=== PATIENT | female | born 1940 | race Caucasian/White ===

== ENCOUNTER 2022-03-20 13:59 | Outpatient (CLI) | payer MEDICARE, BC, SELFPAY ==
[2022-03-20 16:09] LABS: Chloride* 101 mmol/L (96-114); Potassium* 4.5 mmol/L (3.6-5.1); Sodium* 140 mmol/L (135-149)
[2022-03-20 16:12] LABS: Blood Urea Nitrogen* 31 mg/dL (7-30); Carbon Dioxide* 32 mmol/L (20-32); Creatinine* 0.9 mg/dL (0.5-1.5); Estimated Glomerular Filt Rate 63 ml/min; Glucose* 114 mg/dL (60-115)
[2022-03-20 16:13] LABS: Calcium* 9.1 mg/dL (8.4-10.6)
== END 2022-03-20 14:00 | disposition home or self-care (01) ==
LOC: NFLDREF 14:01
PROVIDERS: PCP Family Medicine; Visit Provider Family Medicine
DX: Z01.818 Encounter for other preprocedural examination (principal)
CPT/HCPCS: 80048

== ENCOUNTER 2022-03-22 07:29 | Day surgery (SDC) | payer MEDICARE, BC, SELFPAY ==
[2022-03-22 07:41] VITALS: BMI 22.1
[2022-03-22] MEDS: TETRACAINE 0.5% OPHTH 1 DROP EYE-LEFT ×2 (07:43→07:47)
[2022-03-22] MEDS: KETOROLAC OPHTH 0.5% 1 DROP EYE-LEFT ×2 (07:46→07:50)
[2022-03-22] MEDS: SODIUM CHLORIDE 0.9 % (FLUSH) 10 ML SYRINGE IVF (07:50)
[2022-03-22 07:53] VITALS: BP 134/56; PULSE 58; RESP 16; TEMP 36.6; O2SAT 98
[2022-03-22] MEDS: TETRACAINE 0.5% OPHTH 2 DROP EYE-LEFT (08:36)
[2022-03-22] MEDS: BALANCED SALT IRRIG SOLN 15 ML EYE-LEFT (08:40)
--- NOTE | 2022-03-22 08:55 | W.ANESCHARGE ---
Anesthesia Charges Start Date/Time Anesthesia Start Date: 03/22/22 Anesthesia Start Time: 08:32 Stop Date/Time Anesthesia Stop Date: 03/22/22 Anesthesia Stop Time: 09:05 Summary Emergency: No Extremes of Age: Over 68-CPT 79020
[2022-03-22 09:05] VITALS: BP 105/57; PULSE 52; RESP 16; TEMP 36.8; O2SAT 99
--- NOTE | 2022-03-22 10:31 | P.PCN_ITS ---
Procedure Note Date Seen: 03/22/22 Will [facility] bill your pro fee for this procedure?: Yes Procedure Description: SURGEON: Jesi Calzada MD PREOPERATIVE DIAGNOSIS: Nuclear sclerotic cataract, left eye. POSTOPERATIVE DIAGNOSIS: Nuclear sclerotic cataract, left eye. NAME OF OPERATION: Phacoemulsification of cataract with posterior chamber intraocular lens implantation in the left eye. ANESTHESIA: Topical. ESTIMATED BLOOD LOSS: Less than 2 cc. COMPLICATIONS: None. PATHOLOGY SPECIMEN: None. INDICATIONS: See consult note for details. The risks, benefits and alternatives of the procedure were explained to the patient, who elected to proceed and signed informed consent to do so. PROCEDURE: The patient was brought to the pre-holding area where the left eye was identified as the operative eye. I placed my initials above this eye. The patient received eye drops consisting of 0.5% tetracaine, 1% tropicamide, 10% phenylephrine, and 0.5% ketorolac. The patient was then brought to the operating room where the left eye was again identified as the operative eye. The eye was prepped with Betadine and draped in the usual sterile ophthalmic fashion. A #15 super-sharp blade was used to create a paracentesis site. 1% non-preserved intracameral lidocaine was injected into the anterior chamber. Endocoat was injected into the anterior chamber. A 2.4 mm keratome was used to create a three-plane self-sealing incision 1 mm anterior to the temporal limbus. A cystotome was used to create an anterior capsular leaflet. The Utrata forceps were used to extend this to form a continuous curvilinear capsulorrhexis. Hydrodissection was performed. The cataract was removed with phacoemulsification using the [id number] technique. The irrigation and aspiration tip was used to remove the remaining cortex. Healon was injected into the capsular bag. An JO ZCB00 intraocular lens of 11.5 diopters was injected into the capsular bag. The irrigation and aspiration tip was used to remove the remaining viscoelastic. Balanced salt solution on a cannula was used to hydrate the wound, and the wound was found to be watertight. The pupil was noted to be round. DISPOSITION: The patient was taken to the recovery room and discharged to home in stable condition. The patient was instructed to call me or go to the emergency department with any sudden change, including dramatic loss of vision, severe pain in the eye or eyebrow region, nausea, or vomiting. The patient will follow up in the clinic tomorrow morning. Surgeon: Jesi Calzada MD
== END 2022-03-22 09:40 | disposition home or self-care (01) ==
PROVIDERS: PCP Family Medicine; Visit Provider Ophthalmology
PROC: (CPT 66984; principal; 2022-03-22 07:30)
DX: H25.12 Age-related nuclear cataract, left eye (principal)
CPT/HCPCS: 66984; 00142; 99100; A9270; J2250; J3010; V2632

== ENCOUNTER 2022-04-05 07:29 | Day surgery (SDC) | payer MEDICARE, BC, SELFPAY ==
[2022-04-05 07:49] VITALS: BP 139/63; PULSE 57; RESP 16; TEMP 36.7; O2SAT 98
[2022-04-05] MEDS: TETRACAINE 0.5% OPHTH 1 DROP EYE-RIGHT ×2 (07:51→07:54)
[2022-04-05] MEDS: KETOROLAC OPHTH 0.5% 1 DROP EYE-RIGHT ×2 (07:51→07:54)
[2022-04-05] MEDS: SODIUM CHLORIDE 0.9 % (FLUSH) 10 ML SYRINGE IVF (07:52)
--- NOTE | 2022-04-05 07:55 | SUR.PREOP ---
The eye drops brought by the patient (Ketorolac and Prednisolone) are examined and I have determined they are labeled by the patient's pharmacy for this patient as prescribed by the surgeon. The bottles are intact, recently obtained and appear to be correct.
[2022-04-05] MEDS: TETRACAINE 0.5% OPHTH 2 DROP EYE-RIGHT (08:03)
[2022-04-05] MEDS: BALANCED SALT IRRIG SOLN 15 ML EYE-RIGHT (08:03)
[2022-04-05 08:07] VITALS: BMI 22.1
--- NOTE | 2022-04-05 09:01 | W.ANESCHARGE ---
Anesthesia Charges Start Date/Time Anesthesia Start Date: 04/05/22 Anesthesia Start Time: 08:30 Stop Date/Time Anesthesia Stop Date: 04/05/22 Anesthesia Stop Time: 09:05 Summary Emergency: No Extremes of Age: Over 68-CPT 04616
[2022-04-05 09:06] VITALS: BP 139/59; PULSE 56; RESP 16; TEMP 36.3; O2SAT 96
--- NOTE | 2022-04-05 09:10 | P.PCN_ITS ---
Procedure Note Date Seen: 04/05/22 Will [facility] bill your pro fee for this procedure?: Yes Procedure Description: SURGEON: Jesi Calzada MD PREOPERATIVE DIAGNOSIS: Nuclear sclerotic cataract, right eye. POSTOPERATIVE DIAGNOSIS: Nuclear sclerotic cataract, right eye. NAME OF OPERATION: Phacoemulsification of cataract with posterior chamber intraocular lens implantation in the right eye. ANESTHESIA: Topical. ESTIMATED BLOOD LOSS: Less than 2 cc. COMPLICATIONS: None. PATHOLOGY SPECIMEN: None. INDICATIONS: See consult note for details. The risks, benefits and alternatives of the procedure were explained to the patient, who elected to proceed and signed informed consent to do so. PROCEDURE: The patient was brought to the pre-holding area where the right eye was identified as the operative eye. I placed my initials above this eye. The patient received eye drops consisting of 0.5% tetracaine, 1% tropicamide, 10% phenylephrine, and 0.5% ketorolac. The patient was then brought to the operating room where the right eye was again identified as the operative eye. The eye was prepped with Betadine and draped in the usual sterile ophthalmic fashion. A #15 super-sharp blade was used to create a paracentesis site. 1% non-preserved intracameral lidocaine was injected into the anterior chamber. Endocoat was injected into the anterior chamber. A 2.4 mm keratome was used to create a three-plane self-sealing incision 1 mm anterior to the temporal limbus. A cystotome was used to create an anterior capsular leaflet. The Utrata forceps were used to extend this to form a continuous curvilinear capsulorrhexis. Hydrodissection was performed. The cataract was removed with phacoemulsification using the [id number]-[id number] technique. The irrigation and aspiration tip was used to remove the remaining cortex. Healon was injected into the capsular bag. An JO ZCB00 intraocular lens of 15.5 diopters was injected into the capsular bag. The irrigation and aspiration tip was used to remove the remaining viscoelastic. Balanced salt solution on a cannula was used to hydrate the wound, and the wound was found to be watertight. The pupil was noted to be round. DISPOSITION: The patient was taken to the recovery room and discharged to home in stable condition. The patient was instructed to call me or go to the emergency department with any sudden change, including dramatic loss of vision, severe pain in the eye or eyebrow region, nausea, or vomiting. The patient will follow up in the clinic tomorrow morning. Surgeon: Jesi Calzada MD
--- NOTE | 2022-04-05 09:20 | W.ANESCHARGE ---
Anesthesia Charges Start Date/Time Anesthesia Start Date: 04/05/22 Anesthesia Start Time: 08:30 Stop Date/Time Anesthesia Stop Date: 04/05/22 Anesthesia Stop Time: 09:05 Summary Emergency: No Extremes of Age: Over 68-CPT 80998
== END 2022-04-05 09:34 | disposition home or self-care (01) ==
PROVIDERS: PCP Family Medicine; Visit Provider Ophthalmology
PROC: (CPT 66984; principal; 2022-04-05 07:30)
DX: H25.11 Age-related nuclear cataract, right eye (principal)
CPT/HCPCS: 66984; 142; 99100; A9270; J2250; J3010; V2632

== ENCOUNTER 2022-06-01 10:02 | Outpatient (CLI) | payer MEDICARE, BC, SELFPAY ==
[2022-06-01 11:25] LABS: Albumin* 3.9 g/dL (3.3-5.0); Chloride* 103 mmol/L (96-114)
[2022-06-01 11:26] LABS: Potassium* 5.1 mmol/L (3.6-5.1); Sodium* 139 mmol/L (135-149)
[2022-06-01 11:28] LABS: Aspartate Amino Transferase* 28 U/L (12-35); Bilirubin Total* 0.5 mg/dL (0.1-1.5); Blood Urea Nitrogen* 25 mg/dL (7-30); Carbon Dioxide* 29 mmol/L (20-32); Cholesterol* 168 mg/dL (90-199); Creatinine* 0.8 mg/dL (0.5-1.5); Estimated Glomerular Filt Rate 73 ml/min; Glucose* 84 mg/dL (60-115); Total Protein* 6.2 g/dL (6.0-8.3)
[2022-06-01 11:29] LABS: Alanine Aminotransferase* 23 U/L (4-35); Alkaline Phosphatase* 71 U/L (40-150); Calcium* 8.8 mg/dL (8.4-10.6); HDL Cholesterol* 53 mg/dL (>=50); LDL Cholesterol Calculated 97 mg/dL (<100); Triglycerides* 88 mg/dL (40-149)
== END 2022-06-01 10:03 | disposition home or self-care (01) ==
LOC: NFLDREF 10:02
PROVIDERS: PCP Family Medicine; Visit Provider Family Medicine
DX: E78.5 Hyperlipidemia, unspecified (principal); I10 Essential (primary) hypertension
CPT/HCPCS: 80053; 80061

== ENCOUNTER 2023-06-12 09:20 | Outpatient (CLI) | payer MEDICARE, BC, SELFPAY | END 2023-06-12 09:21 | disposition home or self-care (01) | LOC: NFLDREF 06-14 14:57 | PROVIDERS: PCP Family Medicine; Referring Provider Family Medicine; Visit Provider Family Medicine | DX: E78.5 Hyperlipidemia, unspecified (principal); I10 Essential (primary) hypertension | CPT/HCPCS: 80048; 80053; 80061 ==

== ENCOUNTER 2023-12-26 13:45 | Outpatient (RCR) | payer MEDICARE, BC, SELFPAY ==
--- NOTE | 2023-10-29 15:14 | PT.OPEX ---
Please review and sign the attached physical therapy evaluation attached below. Thank you. PT [facility] Outpatient Eval PT [facility] Outpatient Eval Start: 10/26/23 14:01 Freq: Status: Active Protocol: Document 10/29/23 08:47 TLQ (Rec: 10/29/23 15:08 TLQ [id number]) E-signed By Brittany Guevara DPT Physical Therapy Outpatient Evaluation Insurance Information Recert Due Date 01/27/24 Insurance Name Medicare B,[employer] Medical Diagnosis Benign paroxysmal vertigo, unspecified ear H81.10 Treating Diagnosis Cervicalgia M54.2 Stiffness M25.60 Unsteady on feet R26.81 Dizziness R42 Referring MD Dallas Velez MD Subjective Subjective Alycia is here today to address symptoms of vertigo over the past month. Got worse over this last week after she went to the dentist where she was in the chair for about an hour. Had about 30 minutes afterwards where her balance felt off. Has to go back to the dentist later this afternoon, then no further follow-ups. Symptoms worsen with looking up. She states it almost feels like a panic attack, this lasts for about 15 minutes. Typically feels more lightheaded, no room spinning sensations. Afterwards feels unsteady like she needs to hold onto a wall when she walks. History of generalized anxiety and panic attacks, had been taking Lexapro but stopped taking this about 5 months ago. Does have some hesitation with sleeping at night, fearful of symptoms starting, has been sleeping on her sides or stomach as she is afraid to sleep on her back. Does not have a history of vertigo-like symptoms. Episodes occur approximately twice a week. PMHx: HTN, depression, optic migraines Pain Comments dizziness: moderate aggravating factors: cervical extension alleviating factors: sitting Date of Last Physician Visit 08/23/23 Current Work Status Retired Preferred Name Alycia Precautions Therapy Limitations/Systems Review Not Limited Objective Other/Pertinent Objective CERVICAL ROM Flexion: 50 degrees, mild symptoms Extension: 30 degrees Lateral flexion: 25 degrees B Rotation: R 50 degrees, L 55 degrees, slow/hesitant movement PALPATION tender with bilateral UT/LS (R >L) OCULOMOTOR SCREEN H-test (-) Saccades: normal Convergence: normal Cover-uncover test: normal Head thrust test (-) OTHER ASSESSMENTS VOR: normal VOR cancellation: normal Franklin Hallpike: (-) bilaterally, dizziness with supine to sit post-test Horizontal roll test: NT BALANCE/CTSIB Romberg eyes open firm surface : NT due to time Romberg eyes closed firm surface: NT due to time Romberg eyes open foam surface : NT due to time Romberg eyes closed form surface: NT due to time GAIT without A.D., slow lamont 4-ITEM DGI 04/03 (<10 indicates fall risk) Horizontal head turns (1) lateral path deviation, slow gait Vertical head turns (2) slow gait Gait on level surfaces (3) Changes in gait speed (3) Functional Test Performed & Score Dizziness Handicap Inventory ( DHI): not administered today due to time constraints Assessment Assessment/Impression Patient is an 83-year-old woman who presents to outpatient physical therapy to address symptoms of dizziness of one month duration. Has an average of two episodes per week that last approximately 15 minutes in duration, she describes feeling lightheaded with symptoms similar to that of a panic attack. She has a history of mental health diagnoses and panic attacks which may exacerbate her symptoms when present. In clinic today symptoms were reproduced with active cervical extension and supine> sit transitions. She denies room spinning sensations and had negative bilateral assessments of Olga-Hallpike today. It should be noted that the patient was very hesitant to perform positional testing today and performed with slow transitions and needing reinforcement to maintain test positions - will assess again if appropriate. Based on today's examination findings it is likely the patient's dizziness symptoms are cervicogenic in nature, I discussed this etiology with the patient. In additional to cervical motion reproducing symptoms, she had increased tone of her upper trapezius and levator scap muscles bilaterally. When dizziness episodes are present she recalls feeling off balance, assessments completed today indicated she is at risk for falls and demonstrates path deviation when ambulating with horizontal head turns. Patient was instructed through and provided with a printed HEP to address cervical symptoms today. Discussed role of physical therapy interventions, patient verbally agreed to POC. She is expected to benefit from physical therapy interventions to reduce frequency and severity of vertigo symptoms. Primary Functional Limitations cervicogenic dizziness, muscle tightness, cervical extension , impaired balance Plan of Care Rehabilitation Potential Good Physical Therapy Goals Therapy goals to be completed in 8 weeks: - Patient will report resolution of dizziness with all head positions for >5 consecutive days to improve safety with transfers and daily activities. - Patient will display Romberg balance on foam surface with eyes closed >10 sec with minimal sway to decrease falls risk. - Patient will report >18 point (MCID) improvement on DHI questionnaire to significantly improve tolerance to functional activities. - Patient will display improved 4-item DGI testing > 10/12 to decrease falls risk with dynamic gait tasks. Treatment Plan/Direct Interventions Canalith Repositioning,Gait Training,Manual Therapy, Neuromuscular Re-ed,Self-Care/ Home Management,Therapeutic Activities,Therapeutic Exercises Frequency/Duration 1-2x/week for 8 weeks, decreasing frequency as able Patient Will Be Discharged From Therapy Completion of LTG(s),Skills Plateau,Independent w/HEP, Independently Progressing Evaluation Billing Untimed Code Treatment Minutes 40 Complexity Low Certification Information Initial Certification Date 10/29/23 Ending Certification Date 01/27/24 Provider Signature Shows Agreement With POC & Medical Necessity Physician Signature & Date Requested Please Sign/Date Here Physician Comment/Change : Physician NPI Number #
== END 2024-02-15 17:16 | disposition home or self-care (01) ==
PROVIDERS: PCP Family Medicine; Visit Provider Family Medicine
DX: H81.10 Benign paroxysmal vertigo, unspecified ear (principal); M54.2 Cervicalgia; M25.60 Stiffness of unspecified joint, not elsewhere classified; R26.81 Unsteadiness on feet; Z51.89 Encounter for other specified aftercare
CPT/HCPCS: 97110; 97140; 97161

== ENCOUNTER 2024-06-13 09:36 | Outpatient (CLI) | payer MEDICARE, BC, SELFPAY | END 2024-06-13 09:37 | disposition home or self-care (01) | LOC: NFLDREF 06-15 14:44 | PROVIDERS: PCP Family Medicine; Referring Provider Family Medicine; Visit Provider Family Medicine | DX: I10 Essential (primary) hypertension (principal); E78.5 Hyperlipidemia, unspecified | CPT/HCPCS: 80053; 80061 ==

== ENCOUNTER 2024-10-02 19:11 | Outpatient (CLI) | payer OTHER, MEDICARE, BC, SELFPAY | END 2024-10-02 19:12 | disposition home or self-care (01) | LOC: AMB 10-03 11:08 | PROVIDERS: PCP Family Medicine; Visit Provider Family Medicine | DX: S19.9XXA Unspecified injury of neck, initial encounter (principal); V47.1XXA Car passenger injured in collision with fixed or stationary object in nontraffic accident, initial encounter; Y92.488 Other paved roadways as the place of occurrence of the external cause | CPT/HCPCS: A0425; A0427 ==

== ENCOUNTER 2024-10-02 19:46 | Emergency (ER) | payer OTHER, MEDICARE, BC, SELFPAY ==
[2024-10-02] VITALS (9 sets, daily range): BP systolic 142–164; BP diastolic 60–79; PULSE 80–96; RESP 16–20; TEMP 36.7–37; O2SAT 95–98; BMI 17.6
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
[2024-10-02 20:13] LABS: Basophils Absolute Auto 0.02 K/uL (0.00-0.30); Basophils Percent Auto 0.3 % (0.0-3.0); Eosinophils Absolute Auto 0.23 K/uL (0.00-0.50); Eosinophils Percent Auto 3.5 % (0.0-7.0); Hematocrit 35.6 % (33.0-51.0); Immature Granulocytes Abs Auto 0.05 K/uL (0.00-0.30); Immature Granulocytes Pct Auto 0.8 %; Lymphocytes Percent Auto 45.3 % (20-44); Mean Corpuscular HGB Conc 34 gm/dL (32-36); Mean Corpuscular Hemoglobin 33 pg (26-34); Mean Corpuscular Volume 97 fL (80-100); Monocytes Percent Auto 9.4 % (0.0-11.0); Neutrophils Percent Auto 40.7 % (42.0-72.0); Platelet Count* 218 K/uL (140-440); RDW Coefficient of Variation % 12.1 % (11.5-15.5); Red Blood Count 3.69 m/uL (4.00-5.20); White Blood Count* 6.49 K/uL (4.50-11.00)
[2024-10-02 20:16] LABS: Slide Review Reflex No
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
[2024-10-02 20:34] LABS: Chloride* 101 mmol/L (96-114); Sodium* 137 mmol/L (135-149)
[2024-10-02 20:35] LABS: Potassium* 3.7 mmol/L (3.6-5.1)
[2024-10-02 20:37] LABS: Anion Gap 11 mEq/L (7-15); Blood Urea Nitrogen* 32 mg/dL (7-30); Carbon Dioxide* 25 mmol/L (20-32); Est. Creatinine Clearance* 33.54; Estimated Glomerular Filt Rate 55 ml/min
[2024-10-02 20:38] LABS: Glucose* 129 mg/dL (60-115)
[2024-10-02 20:39] LABS: Creatinine, Point-of-Care* 1.2 mg/dl (0.6-1.3)
[2024-10-02 20:57] LABS: Troponin I* < 0.01 ng/mL (0.01-0.04)
== END 2024-10-02 21:48 | disposition home or self-care (01) ==
PROVIDERS: Emergency Provider Student in an Organized Health Care Education/Training Program; PCP Family Medicine
DX: R07.89 Other chest pain (principal); S16.1XXA Strain of muscle, fascia and tendon at neck level, initial encounter; V49.3XXA Car occupant (driver) (passenger) injured in unspecified nontraffic accident, initial encounter
CPT/HCPCS: 36415; 70450; 71260; 72125; 74177; 80048; 82565; 84484; 85025; 93005; 99284; 99291; G0390; Q9967

== ENCOUNTER 2025-06-12 09:19 | Outpatient (CLI) | payer MEDICARE, BC, SELFPAY | END 2025-06-12 09:20 | disposition home or self-care (01) | LOC: NFLDREF 06-18 13:59 | PROVIDERS: PCP Family Medicine; Referring Provider Family Medicine; Visit Provider Family Medicine | DX: E78.5 Hyperlipidemia, unspecified (principal) | CPT/HCPCS: 80053; 80061 ==